=== PATIENT | male | born 1970 | race Caucasian/White ===

== ENCOUNTER 2020-02-27 09:37 | Emergency (ER) | payer OTHER ==
[2020-02-27 10:45] VITALS: BP 191/104
--- NOTE | 2020-02-27 11:09 | UC ---
Lower Extremity/Ankle HPI - HPI Summary HPI Summary: Pt presetns with c/o sudden onset of left ankle pain, swelling, and bruising after standing form a sitting postion and "rolling his ankle" inward. Pt states he was "3-4 drinks in" at time of injury on 02/25/20 - History of Current Complaint Stated Complaint: LEFT ANKLE INJURY Time Seen by Provider: 02/27/20 10:37 Hx Obtained From: Patient Onset/Duration: Sudden Onset, Lasting Days, Still Present Severity Initially: Moderate Severity Currently: Moderate Pain Intensity: 5 Aggravating Factor(s): Standing, Ambulation Alleviating Factor(s): Nothing Able to Bear Weight: Yes - minimal - Risk Factors Gout Risk Factors: Age Over 40, Male, Hypertension DVT Risk Factors: Negative Septic Arthritis Risk Factor: Negative - Allergies/Home Medications Allergies/Adverse Reactions: Allergies Allergy/AdvReac Type Severity Reaction Status Date / Time No Known Allergies Allergy Verified 02/27/20 10:45 Home Medications: Home Medications Acetaminophen TAB* [Tylenol TAB*] 650 mg PO Q6H PRN #20 tab 02/27/20 [Rx] Blood Pressure Med 02/27/20 [History] Cholecalciferol TAB* [Vitamin D TAB*] 400 unit PO DAILY 02/27/20 [History Confirmed 02/27/20] Ibuprofen TAB* [Motrin TAB* 800 MG] 800 mg PO Q8H PRN #15 tab 02/27/20 [Rx] Pravastatin Sodium 20 mg PO DAILY 02/27/20 [History Confirmed 02/27/20] PMH/Surg Hx/FS Hx/Imm Hx Previously Healthy: Yes Cardiovascular History: Hypertension - Surgical History Surgical History: Yes Surgery Procedure, Year, and Place: subdermal hematoma - Family History Known Family History: Positive: Cardiac Disease - Social History Occupation: Employed Full-time Lives: With Family Alcohol Use: Daily Substance Use Type: Marijuana Substance Use Comment - Amount & Last Used: Smoke "here and there" Smoking Status (MU): Current Every Day Smoker Type: Cigarettes Amount Used/How Often: 1 ppd Length of Time of Smoking/Using Tobacco: 30+ yrs Have You Smoked in the Last Year: Yes Review of Systems All Other Systems Reviewed And Are Negative: Yes Constitutional: Positive: Negative Skin: Positive: Bruising - left ankle and foot Eyes: Positive: Negative ENT: Positive: Negative Respiratory: Positive: Negative Cardiovascular: Positive: Negative Gastrointestinal: Positive: Negative Genitourinary: Positive: Negative Motor: Positive: Decreased ROM - left ankle Neurovascular: Positive: Negative Musculoskeletal: Positive: Arthralgia, Decreased ROM, Edema, Myalgia Neurological/Mental Status: Positive: Negative Psychological: Positive: Negative Is Patient Immunocompromised?: No Physical Exam Triage Information Reviewed: Yes Appearance: Pain Distress - with ambulation, Thin Vital Signs: Initial Vital Signs Temp 99.0 F 02/27/20 10:39 Pulse 82 02/27/20 10:39 Resp 18 02/27/20 10:39 BP 191/104 02/27/20 10:39 Pulse Ox 99 02/27/20 10:39 Vital Signs Reviewed: Yes Eye Exam: Normal ENT: Positive: Hearing grossly normal Dental Exam: Normal Neck exam: Normal Respiratory: Positive: No respiratory distress Musculoskeletal: Positive: Strength Limited @ - left ankle pain with ROM, ROM Limited @ - left ankle, Edema @ - left ankle and swelling Neurological Exam: Normal Psychological Exam: Normal Skin Exam: Other - generalized bruising Diagnostics - Radiology No standard instances Radiology Interpretation Completed By: Radiologist - positive for fracture Lower Extremity Course/Dx - Differential Dx/Diagnosis Differential Diagnosis/HQI/PQRI: Contusion, Fracture (Closed), Sprain, Strain Provider Diagnosis: Closed fracture of left distal fibula Discharge ED - Sign-Out/Discharge Documenting (check all that apply): Patient Departure All imaging exams completed and their final reports reviewed: Yes - Discharge Plan Condition: Stable Disposition: HOME Prescriptions: Acetaminophen TAB* [Tylenol TAB*] 650 mg PO Q6H PRN #20 tab PRN Reason: Pain - Mild Ibuprofen TAB* [Motrin TAB* 800 MG] 800 mg PO Q8H PRN #15 tab PRN Reason: Pain - Mild Patient Education Materials: Ankle Fracture (ED), R.I.C.E. Treatment (ED) Referrals: Thomas Modi MD [Primary Care Provider] - If Needed Yvon Lenz MD [Medical Doctor] - (as soon as possible. ) - Billing Disposition and Condition Condition: STABLE Disposition: Home
== END 2020-02-27 11:55 | disposition home or self-care (01) ==
LOC: UCCORT 09:37
DX: S82.65XA Nondisplaced fracture of lateral malleolus of left fibula, initial encounter for closed fracture (principal); X50.1XXA Overexertion from prolonged static or awkward postures, initial encounter; Y92.9 Unspecified place or not applicable; I10 Essential (primary) hypertension; Z79.899 Other long term (current) drug therapy; F17.210 Nicotine dependence, cigarettes, uncomplicated
CPT/HCPCS: 99203; G0463